=== PATIENT | male | born 1965 | race Caucasian/White ===

== ENCOUNTER 2018-08-30 15:59 | Emergency (ER) | payer BC ==
[2018-08-30 16:49] VITALS: BP 148/100
--- NOTE | 2018-08-30 17:20 | UC ---
Abdominal Pain Male HPI - HPI Summary HPI Summary: The patient is a 53-year-old male who has had intermittent epigastric pain for about a year. It is gotten worse over the past 4 months. He states that when he eats solid foods he will often get severe epigastric pain minutes after eating. He has no nausea. He is from the only way to relieve his pain is to foorce himself to vomit. He has had no weight loss. The pain can last for hours. The pain does not wake him up at night. He has had no blood in his vomitus. He has had no change in bowel habits. He has a remote history of surgical repair of a ventral hernia. He is on pre-expsoure prophylactis - History of Current Complaint Chief Complaint: UCGI Stated Complaint: VOMITING AFTER EATING Time Seen by Provider: 08/30/18 16:55 Hx Obtained From: Patient Onset/Duration: Sudden Onset, Lasting Hours Timing: Constant Severity Initially: Moderate Severity Currently: None Pain Intensity: 0 Pain Scale Used: 0-10 Numeric Location: Epigastric Radiates: No Aggravating Factor(s): Food Alleviating Factor(s): Other - vomiting Associated Signs And Symptoms: Positive: Vomiting - Allergies/Home Medications Allergies/Adverse Reactions: Allergies Allergy/AdvReac Type Severity Reaction Status Date / Time No Known Allergies Allergy Verified 08/30/18 16:48 PMH/Surg Hx/FS Hx/Imm Hx Previously Healthy: Yes - Surgical History Surgical History: Yes Surgery Procedure, Year, and Place: ABD HERNIA REPAIR - Family History Known Family History: Positive: Hypertension, Other - dad an alcholic - Social History Alcohol Use: Weekly Substance Use Type: None Smoking Status (MU): Never Smoked Tobacco Review of Systems Constitutional: Negative Skin: Negative Eyes: Negative ENT: Negative Respiratory: Negative Cardiovascular: Negative Gastrointestinal: Abdominal Pain, Other - he forces himself to vomit Genitourinary: Negative Motor: Negative Neurovascular: Negative Musculoskeletal: Negative Neurological: Negative Psychological: Negative All Other Systems Reviewed And Are Negative: Yes Physical Exam Triage Information Reviewed: Yes Appearance: Well-Appearing, No Pain Distress, Well-Nourished Vital Signs: Initial Vital Signs Temp 98.2 F 08/30/18 16:44 Pulse 68 08/30/18 16:44 Resp 16 08/30/18 16:44 BP 148/100 08/30/18 16:44 Pulse Ox 97 08/30/18 16:44 Vital Signs Reviewed: Yes Eyes: Positive: Conjunctiva Clear ENT: Positive: Hearing grossly normal, TMs normal, Uvula midline, Other - uvula slightly swollen. Negative: Nasal congestion, Nasal drainage, Muffled voice, Hoarse voice Dental Exam: Normal Neck: Positive: Supple, Nontender, No Lymphadenopathy Respiratory: Positive: Lungs clear, Normal breath sounds, No respiratory distress Cardiovascular: Positive: RRR, No Murmur Abdomen Description: Positive: Nontender, No Organomegaly, Soft. Negative: Bruit, CVA Tenderness (R), CVA Tenderness (L), Distended, Guarding, Hernia @, Hepatomegaly, McBurney's Point Tenderness, Peritoneal Signs, Pulsatile Mass, Splenomegaly Bowel Sounds: Positive: Present Musculoskeletal: Positive: ROM Intact, No Edema Neurological: Positive: Alert Psychological Exam: Normal Skin Exam: Normal Abd Pain Male Course/Dx - Course Course Of Treatment: I advised gi referral for consideration of endoscopy - Differential Dx/Clinical Impression Provider Diagnoses: post prandial abdominal pain- uncertain cause Discharge - Sign-Out/Discharge Documenting (check all that apply): Patient Departure All imaging exams completed and their final reports reviewed: No Studies - Discharge Plan Condition: Stable Disposition: HOME Prescriptions: Omeprazole CAP* [Prilosec CAP* 20 MG] 20 mg PO BEDTIME #14 alon. Patient Education Materials: Acute Abdominal Pain (ED) Referrals: Stan Shaver DO [Doctor of Osteopathy] - As Soon As Possible Eneida Pereyra, [employer] [Primary Care Provider] - 3 Days Additional Instructions: To ER for new or worsening symptoms blood work is pending I suggest you see a gastroenterlogist It may be a while before you can get into see him I suggest you see Eneida later this week for follow up and to review lab work Your BP was elevated and should be followed MYLANTA 30ml (2 tablespoons) every 2 hours while awake for 3 days - Billing Disposition and Condition Condition: STABLE Disposition: Home
[2018-08-31 11:18] LABS: ABS Basophils 0.1 10^3/ul (0-0.2); ABS Eosinophils 0.2 10^3/ul (0-0.6); ABS Lymphocytes 1.8 10^3/ul (1.0-4.8); ABS Monocytes 0.5 10^3/ul (0-0.8); ABS Neutrophils 3.9 10^3/ul (1.5-7.7); ABS Nucleated RBC 0 10^3/ul; Eosinophil % 3.5 % (0-6); Hematocrit 44 % (42-52); Hemoglobin 14.8 g/dl (14.0-18.0); Lymphocyte % 27.5 % (25-47); Mean Corpuscular HGB Conc 34 g/dl (31-36); Mean Corpuscular Hemoglobin 30 pg (27-31); Mean Corpuscular Volume 88 fL (80-94); Nucleated Red Blood Cells % 0.1; Platelet Count 202 10^3/ul (150-450); Red Blood Count 4.95 10^6/ul (4.00-5.40); Red Cell Distribution Width 13 % (10.5-15); White Blood Count 6.4 10^3/ul (3.5-10.8)
--- NOTE | 2018-08-31 16:05 | UC ---
- Progress Note Progress Note: please let pt know that his bilirubin level was elevate it may be due to his vomiting but should should be followed by PCP Discharge - Sign-Out/Discharge Documenting (check all that apply): Post-Discharge Follow Up All imaging exams completed and their final reports reviewed: No Studies - Discharge Plan Condition: Stable Disposition: HOME Prescriptions: Omeprazole CAP* [Prilosec CAP* 20 MG] 20 mg PO BEDTIME #14 cap. Patient Education Materials: Acute Abdominal Pain (ED) Referrals: Stan Shaver DO [Doctor of Osteopathy] - As Soon As Possible Eneida Pereyra NP [Primary Care Provider] - 3 Days Additional Instructions: To ER for new or worsening symptoms blood work is pending I suggest you see a gastroenterlogist It may be a while before you can get into see him I suggest you see Eneida later this week for follow up and to review lab work Your BP was elevated and should be followed MYLANTA 30ml (2 tablespoons) every 2 hours while awake for 3 days - Billing Disposition and Condition Condition: STABLE Disposition: Home
== END 2018-08-30 18:12 | disposition home or self-care (01) ==
LOC: UCEAST 15:59
DX: R10.13 Epigastric pain (principal)
CPT/HCPCS: 36415; 80053; 81003; 83690; 85025; 99212; G0463